=== PATIENT | female | born 1970 | race African-American/Black ===

== ENCOUNTER 2018-02-02 09:24 | Emergency (ER) | payer OTHER, BC ==
[~2018-02-02] VITALS: Ht 165.1 cm; Wt 110.9 kg
[2018-02-02] MEDS ORDERED: MOTRIN400 MG PO (10:28)
[2018-02-02 10:50] VITALS: BP 125/72
== END 2018-02-02 10:50 | disposition home or self-care (01) | DRG 563 ==
LOC: ED 09:24
PROC: 2W3MX1Z Immobilization of Left Lower Extremity using Splint (ICD-10-PCS; principal; 2018-02-02)
DX: S93.492A Sprain of other ligament of left ankle, initial encounter (principal); M25.572 Pain in left ankle and joints of left foot; W01.0XXA Fall on same level from slipping, tripping and stumbling without subsequent striking against object, initial encounter; Y93.01 Activity, walking, marching and hiking; Y92.009 Unspecified place in unspecified non-institutional (private) residence as the place of occurrence of the external cause